=== PATIENT | female | born 1935 | race Caucasian/White ===

== ENCOUNTER → 2016-05-21 | Outpatient (CLI) | payer OTHER ==
--- NOTE | 2016-05-21 15:41 | DI ---
CT BONE DENSITOMETRY OF THE SPINE AND HIP, 05/21/2016 9:05 AM : Clinical History: Asymptomatic post menopausal patient. Screening. Previous Exam: None at this facility. 3D Quantitative CT (QCT) Bone Mineral Densitometry: The [place] scans are normal. Low dose scans are sampled through the midbodies of T12 and L1. Average bone mineral density (BMD) is 114.1 mg/mL corresponding to a volumetric T-score of -2.1, and Z-score of 1.6. The [employer]'s (ACR) volumetric QCT BMD conversion table categorizes th is patient as having osteopenia of the lumbar spine. CT X-Ray Absorptiometry (CTXA) Bone Mineral Densitometry of the Left Hip: Total hip BMD: 999 mg/cm2 T-score: 0.7 Z-score: NA Femoral neck BMD: 875 mg/cm2 T-score: 0.7 Z-score: NA Note: T-scores of the spine and hip are discordant approximately 40% of the time. Changes in actual Q CT or CTXA/DEXA measurements are more reliable in assessment of change in BMD status rather than heredia ges in T-scores. READIN. The QCT lumbar spine BMD value by ACR's 3D volumetric to 2D areal conversion categorizes this pat ient as having osteopenia of the lumbar spine. The QCT spine T-score is -2.1, also indicating osteope yanni of the lumbar spine. 2. The CTXA total hip and femoral neck BMD T-scores are 0.7 and 0.7, respectively. The left total hi p T-score indicates this patient has normal bone mineral density of the total hip.
== END ==
LOC: CT 08:56
PROVIDERS: ATTEND Internal Medicine
DX: Z78.0 Asymptomatic menopausal state (principal); Z13.820 Encounter for screening for osteoporosis
CPT/HCPCS: 77078

== ENCOUNTER → 2016-05-21 | Outpatient (CLI) | payer OTHER ==
--- NOTE | 2016-05-21 10:28 | DI ---
BILATERAL SCREENING FULL FIELD DIGITAL MAMMOGRAMS, 05/21/2016 9:04 AM: Clinical History: Screening. Previous Exam: None at this facility. The patient indicated that she has had a prior mammogram in [place], [place] from [facility]. We have requested the prior study. A supplemental r eport will be issued upon receipt of that prior exam. Routine mediolateral oblique and craniocaudal views of each breast are obtained. Breast tissue densit y is rated as having scattered areas of fibroglandular breast tissue. There are no masses. There are no abnormal calcifications. Skin contours, nipples, and lower axillary regions are normal. These mamm ograms were evaluated and reviewed with CAD software. Follow Up: Optionally every 2 years. BIRADS: 1. Negative exam. Reading: Negative.
== END ==
LOC: MAMMO 08:59
PROVIDERS: ATTEND Internal Medicine
DX: Z12.31 Encounter for screening mammogram for malignant neoplasm of breast (principal)
CPT/HCPCS: G0202